=== PATIENT | female | born 2000 | race African-American/Black ===

== ENCOUNTER 2018-06-10 17:41 | Emergency (ER) | payer OTHER ==
[2018-06-10 18:14] VITALS: TEMP 99
[2018-06-10] MEDS ORDERED: ONDANSETRON 4 MG/2 ML VIAL IVP STA (19:10)
[2018-06-10] MEDS ORDERED: KETOROLAC 30 MG/ML 1 ML VIAL IVP STA (19:10)
[2018-06-10] MEDS ORDERED: SODIUM CHLORIDE 0.9% 1,000 ML IV STA (19:10)
[2018-06-10] MEDS ORDERED: HYDROmorphone 0.5 MG/0.5 ML SYRINGE IVP STA (19:10)
--- NOTE | 2018-06-10 19:14 | ED ---
Abdominal Pain HPI - General Source: patient Mode of arrival: wheelchair Limitations: no limitations <Aaliyah Fischer - Last Filed: 06/10/18 22:33> <Josi Poon - Last Filed: 06/11/18 03:55> - General Chief Complaint: Abdominal Pain Stated Complaint: Cramps and migraine Time Seen by Provider: 06/10/18 18:43 - History of Present Illness Initial Comments: 18-year-old female patient presents to the emergency department today for evaluation of lower abdominal pain and headache. Patient states the pain in her abdomen started this morning. She describes as a cramping type pain. Denies any radiation of the pain through to her back. Patient states that the pain has been constant. She denies any as the patient, diarrhea, nausea, vomiting, hematuria, dysuria, urinary frequency, urinary urgency. States shortly after the cramping started that she developed a headache. Patient states the headache is frontal. States that she does have some light and sound sensitivity but denies any blurred or double vision. Denies any fever or chills with this. Patient states she does have a history of similar type headaches. Patient states her period ended yesterday. States it lasted for 3 days which is not unusual for her. States that she does take control pills. She denies any abnormal vaginal discharge or itching. Patient denies any recent rash, shortness breath, chest pain, numbness, tingling, dizziness, weakness, or any other complaints. (Aaliyah Fischer) - Related Data Previous Rx's Medication Instructions Recorded Ibuprofen [Motrin] 600 mg PO Q8HR PRN #30 tab 06/10/18 Allergies Allergy/AdvReac Type Severity Reaction Status Date / Time No Known Allergies Allergy Verified 06/10/18 19:01 Review of Systems ROS Other: All systems not noted in ROS Statement are negative. <Aaliyah Fischer - Last Filed: 06/10/18 22:33> ROS Other: All systems not noted in ROS Statement are negative. <Josi Poon - Last Filed: 06/11/18 03:55> ROS Statement: Those systems with pertinent positive or pertinent negative responses have been documented in the HPI. Past Medical History Past Medical History: No Reported History History of Any Multi-Drug Resistant Organisms: None Reported Past Surgical History: No Surgical Hx Reported Past Psychological History: No Psychological Hx Reported Smoking Status: Never smoker Past Alcohol Use History: None Reported Past Drug Use History: None Reported <Aaliyah Fischer - Last Filed: 06/10/18 22:33> General Exam Limitations: no limitations General appearance: alert, in no apparent distress, other (Physical well- developed, well-nourished adult female patient in no acute distress. Vital signs upon presentation are temperature 99.0F, pulse 107, respirations 16, blood pressure 94/45, pulse ox 100% on room air.) Eye exam: Present: normal appearance, PERRL, EOMI. Absent: scleral icterus, conjunctival injection, periorbital swelling ENT exam: Present: normal exam, normal oropharynx, mucous membranes moist Respiratory exam: Present: normal lung sounds bilaterally. Absent: respiratory distress, wheezes, rales, rhonchi, stridor Cardiovascular Exam: Present: regular rate, normal rhythm, normal heart sounds. Absent: systolic murmur, diastolic murmur, rubs, gallop, clicks GI/Abdominal exam: Present: soft, tenderness (Lower abdominal tenderness worse over the suprapubic region), normal bowel sounds. Absent: distended, guarding, rebound, rigid Neurological exam: Present: alert, oriented X3, CN II-XII intact Psychiatric exam: Present: normal affect, normal mood Skin exam: Present: warm, dry, intact, normal color. Absent: rash <Aaliyah Fischer - Last Filed: 06/10/18 22:33> Course Vital Signs 06/10/18 06/10/18 18:11 22:16 Temperature 99 F Pulse Rate 107 H 76 Respiratory 16 18 Rate Blood Pressure 94/45 104/59 O2 Sat by Pulse 100 99 Oximetry Medical Decision Making - Lab Data Result diagrams: 06/10/18 19:40 06/10/18 19:40 - Radiology Data Radiology results: report reviewed <Aaliyah Fischer - Last Filed: 06/10/18 22:33> - Lab Data Result diagrams: 06/10/18 19:40 06/10/18 19:40 <Josi Poon - Last Filed: 06/11/18 03:55> - Medical Decision Making 18-year-old female patient presents to the emergency department today for evaluation of headache and pelvic cramping. Physical examination did reveal tenderness over the suprapubic region. Labs reviewed and were unremarkable. Ultrasound was obtained and showed no evidence of acute pelvic abnormalities. Upon reevaluation patient does report improvement of symptoms. States she is having some mild cramping in the lower abdomen. She is afebrile, vital signs stable. Patient's period ended yesterday. We'll discharge home at this time to follow-up with her primary care physician. She'll be a prescription for ibuprofen. Return parameters were discussed in detail. She verbalizes understanding and agrees with this plan. (Aaliyah Fischer) I was available for consultation in the emergency department. The history and physical exam were done by the midlevel provider. I was consulted for this patient's care. I reviewed the case with the midlevel provider and based on their presentation of the patient, I agree with the assessment, medical decision making and plan of care as documented. (Josi Poon) - Lab Data Lab Results 06/10/18 06/10/18 06/10/18 Range/Units 19:40 19:40 19:40 WBC 11.8 H (4.0-11.0) k/uL RBC 4.41 (3.80-5.40) m/uL Hgb 12.9 (11.4-16.0) gm/dL Hct 40.3 (34.0-46.0) % MCV 91.5 (80.0-100.0) fL MCH 29.2 (25.0-35.0) pg MCHC 31.9 (31.0-37.0) g/dL RDW 13.8 (11.5-15.5) % Plt Count 231 (150-450) k/uL Neutrophils % 80 % Lymphocytes % 14 % Monocytes % 3 % Eosinophils % 2 % Basophils % 0 % Neutrophils # 9.5 H (1.3-7.7) k/uL Lymphocytes # 1.6 (1.0-4.8) k/uL Monocytes # 0.4 (0-1.0) k/uL Eosinophils # 0.2 (0-0.7) k/uL Basophils # 0.0 (0-0.2) k/uL Sodium 140 (137-145) mmol/L Potassium 3.9 (3.5-5.1) mmol/L Chloride 106 (98-107) mmol/L Carbon Dioxide 23 (22-30) mmol/L Anion Gap 11 mmol/L BUN 9 (7-17) mg/dL Creatinine 0.64 (0.52-1.04) mg/dL Est GFR (CKD-EPI)AfAm >90 (>60 ml/min/1.73 sqM) Est GFR (CKD-EPI)NonAf >90 (>60 ml/min/1.73 sqM) Glucose 85 (74-99) mg/dL Calcium 9.4 (8.4-10.2) mg/dL Total Bilirubin 0.7 (0.2-1.3) mg/dL AST 19 (14-36) U/L ALT 28 (9-52) U/L Alkaline Phosphatase 95 (38-126) U/L Total Protein 7.1 (6.3-8.2) g/dL Albumin 4.3 (3.5-5.0) g/dL Amylase 43 (30-110) U/L Lipase 43 (23-300) U/L Urine Color Light Yellow Urine Appearance Clear (Clear) Urine pH 8.0 (5.0-8.0) Ur Specific [place] 1.014 (1.001-1.035) Urine Protein Negative (Negative) Urine Glucose (UA) Negative (Negative) Urine Ketones Negative (Negative) Urine Blood Moderate H (Negative) Urine Nitrite Negative (Negative) Urine Bilirubin Negative (Negative) Urine Urobilinogen <2.0 (<2.0) mg/dL Ur Leukocyte Esterase Negative (Negative) Urine RBC 1 (0-5) /hpf Urine WBC 2 (0-5) /hpf Ur Squamous Epith Cells 9 H (0-4) /hpf Amorphous Sediment Rare H (None) /hpf Urine Bacteria Rare H (None) /hpf Urine Mucus Rare H (None) /hpf Urine HCG, Qual (Not Detectd) 06/10/18 Range/Units 19:42 WBC (4.0-11.0) k/uL RBC (3.80-5.40) m/uL Hgb (11.4-16.0) gm/dL Hct (34.0-46.0) % MCV (80.0-100.0) fL MCH (25.0-35.0) pg MCHC (31.0-37.0) g/dL RDW (11.5-15.5) % Plt Count (150-450) k/uL Neutrophils % % Lymphocytes % % Monocytes % % Eosinophils % % Basophils % % Neutrophils # (1.3-7.7) k/uL Lymphocytes # (1.0-4.8) k/uL Monocytes # (0-1.0) k/uL Eosinophils # (0-0.7) k/uL Basophils # (0-0.2) k/uL Sodium (137-145) mmol/L Potassium (3.5-5.1) mmol/L Chloride (98-107) mmol/L Carbon Dioxide (22-30) mmol/L Anion Gap mmol/L BUN (7-17) mg/dL Creatinine (0.52-1.04) mg/dL Est GFR (CKD-EPI)AfAm (>60 ml/min/1.73 sqM) Est GFR (CKD-EPI)NonAf (>60 ml/min/1.73 sqM) Glucose (74-99) mg/dL Calcium (8.4-10.2) mg/dL Total Bilirubin (0.2-1.3) mg/dL AST (14-36) U/L ALT (9-52) U/L Alkaline Phosphatase (38-126) U/L Total Protein (6.3-8.2) g/dL Albumin (3.5-5.0) g/dL Amylase (30-110) U/L Lipase (23-300) U/L Urine Color Urine Appearance (Clear) Urine pH (5.0-8.0) Ur Specific [place] (1.001-1.035) Urine Protein (Negative) Urine Glucose (UA) (Negative) Urine Ketones (Negative) Urine Blood (Negative) Urine Nitrite (Negative) Urine Bilirubin (Negative) Urine Urobilinogen (<2.0) mg/dL Ur Leukocyte Esterase (Negative) Urine RBC (0-5) /hpf Urine WBC (0-5) /hpf Ur Squamous Epith Cells (0-4) /hpf Amorphous Sediment (None) /hpf Urine Bacteria (None) /hpf Urine Mucus (None) /hpf Urine HCG, Qual Not Detected (Not Detectd) - Radiology Data Transvaginal ultrasound was obtained. Report was reviewed in its entirety. Impression by Dr. Frazier shows negative transvaginal pelvic sonogram. No e vidence of ovarian torsion. No adnexal mass or free fluid. (Aaliyah Fischer) Disposition Is patient prescribed a controlled substance at d/c from ED?: No Time of Disposition: 21:42 <Aaliyah Fischer - Last Filed: 06/10/18 22:33> <Josi Poon - Last Filed: 06/11/18 03:55> Clinical Impression: Abdominal pain, Headache Disposition: HOME SELF-CARE Condition: Good Instructions (If sedation given, give patient instructions): Acute Headache (ED), Abdominal Pain (ED) Additional Instructions: Take medications as directed. Follow-up with your primary care physician for recheck in 1-2 days. Return to the emergency department immediately for any new, worsening, or concerning symptoms. Prescriptions: Ibuprofen [Motrin] 600 mg PO Q8HR PRN #30 tab PRN Reason: Pain Referrals: [facility] [NON-STAFF] - 1-2 days
[2018-06-10 19:53] LABS: Amorphous Sediment,Urine Rare /hpf; Appearance,Urine Clear (Clear); Bacteria,Urine Rare /hpf; Bilirubin,Urine Negative (Negative); Blood,Urine Moderate (Negative); Color,Urine Light Yellow; Glucose,Urine (UA) Negative (Negative); Ketones,Urine Negative (Negative); Leukocyte Esterase,Urine Negative (Negative); Mucus,Urine Rare /hpf; Nitrite,Urine Negative (Negative); Protein,Urine Negative (Negative); RBC,Urine 1 /hpf (0-5); Specific Gravity,Urine 1.014 (1.001-1.035); Squamous Epithelial Cell,Urine 9 /hpf (0-4); Urobilinogen,Urine <2.0 mg/dL (<2.0); WBC,Urine 2 /hpf (0-5)
[2018-06-10 19:59] LABS: Basophils % (A) 0 %; Eosinophils # (A) 0.2 k/uL (0-0.7); Eosinophils % (A) 2 %; HCT 40.3 % (34.0-46.0); HGB 12.9 gm/dL (11.4-16.0); Lymphocytes # (A) 1.6 k/uL (1.0-4.8); Lymphocytes % (A) 14 %; MCH 29.2 pg (25.0-35.0); MCHC 31.9 g/dL (31.0-37.0); MCV 91.5 fL (80.0-100.0); Mean Platelet Volume 7.6; Monocytes # (A) 0.4 k/uL (0-1.0); Monocytes % (A) 3 %; Neutrophils # (A) 9.5 k/uL (1.3-7.7); Neutrophils % (A) 80 %; Platelet Count 231 k/uL (150-450); RBC 4.41 m/uL (3.80-5.40); RDW 13.8 % (11.5-15.5); WBC 11.8 k/uL (4.0-11.0)
[2018-06-10 20:00] LABS: ALT 28 U/L (9-52); AST 19 U/L (14-36); Albumin 4.3 g/dL (3.5-5.0); Alkaline Phosphatase 95 U/L (38-126); Amylase 43 U/L (30-110); Anion Gap 11 mmol/L; Blood Urea Nitrogen 9 mg/dL (7-17); Calcium 9.4 mg/dL (8.4-10.2); Carbon Dioxide 23 mmol/L (22-30); Chloride 106 mmol/L (98-107); Glucose 85 mg/dL (74-99); Lipase 43 U/L (23-300); Potassium 3.9 mmol/L (3.5-5.1); Sodium 140 mmol/L (137-145); Total Bilirubin 0.7 mg/dL (0.2-1.3); Total Protein 7.1 g/dL (6.3-8.2)
--- NOTE | 2018-06-10 21:18 | US ---
EXAMINATION TYPE: US transvaginal DATE OF EXAM: 06/10/2018 COMPARISON: NONE CLINICAL HISTORY: Pain. Cramping and headache. TECHNIQUE: Transvaginal (TV). Date of LMP: 06/03/2018 EXAM MEASUREMENTS: Uterus: 7.7 x 3.3 x 6.6 cm Endometrial Stripe: 0.3 cm Right Ovary: 4.0 x 2.2 x 1.7 cm 1. Uterus: Anteverted wnl 2. Endometrium: wnl 3. Right Ovary: Echogenic area seen. 4. Left Ovary: Obscured by overlying bowel gas Spectral, color and waveform doppler imaging shows good arterial and venous flow within the right o vary; there is no evidence for ovarian torsion. 5. Bilateral Adnexa: wnl 6. Posterior cul-de-sac: wnl IMPRESSION: Negative transvaginal pelvic sonogram. No evidence of ovarian torsion. No adnexal mass or free fluid.
[2018-06-10] MEDS ORDERED: IBUPROFEN 600 MG STARTER PACK 4 TAB BTL PO STA (22:02)
[2018-06-10 22:17] VITALS: BP 104/59; PULSE 76; RESP 18
== END 2018-06-10 22:05 | disposition home or self-care (01) ==
LOC: EC 17:41
DX: R10.30 Lower abdominal pain, unspecified (principal); R51 Headache
CPT/HCPCS: 36415; 80053; 82150; 83690; 85025; 81001; 81025; 93976; 76830; 99284; 96374; 96375 ×2; 96361; J2405; J1885; J1170

== ENCOUNTER 2018-06-28 11:40 | Emergency (ER) | payer OTHER ==
[2018-06-28] MEDS ORDERED: SODIUM CHLORIDE 0.9% 1,000 ML IV STA (12:23)
[2018-06-28 12:45] LABS: Basophils % (A) 0 %; Eosinophils # (A) 0.2 k/uL (0-0.7); Eosinophils % (A) 2 %; HCT 40.7 % (34.0-46.0); HGB 13.4 gm/dL (11.4-16.0); Lymphocytes # (A) 1.6 k/uL (1.0-4.8); Lymphocytes % (A) 24 %; MCH 29.4 pg (25.0-35.0); MCHC 32.8 g/dL (31.0-37.0); MCV 89.5 fL (80.0-100.0); Mean Platelet Volume 7.4; Monocytes # (A) 0.3 k/uL (0-1.0); Monocytes % (A) 5 %; Neutrophils # (A) 4.3 k/uL (1.3-7.7); Neutrophils % (A) 66 %; Platelet Count 291 k/uL (150-450); RBC 4.55 m/uL (3.80-5.40); RDW 13.7 % (11.5-15.5); WBC 6.5 k/uL (4.0-11.0)
[2018-06-28 12:48] LABS: Appearance,Urine Clear (Clear); Bilirubin,Urine Negative (Negative); Blood,Urine Negative (Negative); Color,Urine Yellow; Glucose,Urine (UA) Negative (Negative); Ketones,Urine Negative (Negative); Leukocyte Esterase,Urine Negative (Negative); Nitrite,Urine Negative (Negative); PH, Urine 5.5 (5.0-8.0); Protein,Urine Negative (Negative); Specific Gravity,Urine 1.015 (1.001-1.035); Urobilinogen,Urine <2.0 mg/dL (<2.0)
[2018-06-28 12:53] LABS: ALT 15 U/L (9-52); AST 23 U/L (14-36); Albumin 4.5 g/dL (3.5-5.0); Alkaline Phosphatase 72 U/L (38-126); Anion Gap 11 mmol/L; Blood Urea Nitrogen 9 mg/dL (7-17); Calcium 9.7 mg/dL (8.4-10.2); Carbon Dioxide 24 mmol/L (22-30); Chloride 105 mmol/L (98-107); Glucose 100 mg/dL (74-99); Lipase 55 U/L (23-300); Sodium 140 mmol/L (137-145); Total Bilirubin 0.5 mg/dL (0.2-1.3); Total Protein 7.4 g/dL (6.3-8.2)
[2018-06-28 13:00] LABS: Potassium 4.5 mmol/L (3.5-5.1)
--- NOTE | 2018-06-28 13:03 | US ---
EXAMINATION TYPE: US abdomen APPY DATE OF EXAM: 06/28/2018 COMPARISON: NONE CLINICAL HISTORY: Pain. RLQ pain for two weeks, patient states it feels like menstrual cramps. APPENDIX AP Diameter (normal < 6mm): 0.3 mm Measured outer wall to outer wall. Is the appendix seen in its entirety from the proximal cecum to distal end: no Is the appendix compressible: yes Does the appendix wall appear hypervascular: No Is an appendicolith present: No Is there inflammatory changes or free fluid present: No Tubular structure seen is believed to be normal appendix. Incidental note is made of complex right ov sugey cyst measuring 4.6 x 3.5 x 4.4 cm with peripheral flow. IMPRESSION: 1. NO DEFINITE EVIDENCE OF ACUTE APPENDICITIS. 2. COMPLEX RIGHT OVARIAN CYST.
--- NOTE | 2018-06-28 13:58 | XR ---
EXAMINATION TYPE: XR KUB , 2 VIEWS DATE OF EXAM ORDERED: 06/28/2018 HISTORY: abdominal pain. COMPARISON: None. FINDINGS: The lung bases are clear. Within the abdomen, the abdominal gas pattern is normal. There is no evidence of obstruction or free air. No unusual calcifications are seen. IMPRESSION: NO ACUTE INTRA-ABDOMINAL ABNORMALITY.
--- NOTE | 2018-06-28 14:01 | ED ---
General Adult HPI - General Chief complaint: Abdominal Pain Stated complaint: Abd pain Time Seen by Provider: 06/28/18 12:01 Source: patient, RN notes reviewed, old records reviewed Mode of arrival: ambulatory Limitations: no limitations - History of Present Illness Initial comments: 18-year-old female patient with no pertinent past medical history presents to ED with a cramping waxing waning right lower quadrant pain for approximately 2 weeks. His had similar pain in the past relating to ovarian cysts. Patient reports that she was seen at urgent care approximately 2 weeks ago in which they did abdominal x-ray and stated her pain is likely secondary to constipation. Patient does report that she has had some constipation and irregular stools. Cameron ferraro was should have a normal bowel movement today. Patient denies any nausea vomiting or diarrhea. Patient states that the pain is a cramping pain which comes and goes, not associated with exertion or rest, associated with food. Denies all other complaints. Patient states that she is not . Systemic: Pt denies fatigue, myalgia, fever/chills, rash. Pt denies weakness, night sweats, weight loss. Neuro: Pt denies headache, visual disturbances, syncope or pre-syncope. HEENT: Pt denies ocular discharge or irritation, otalgia, rhinorrhea, pharyngitis or notable lymphadenopathy. Cardiopulmonary: Pt denies chest pain, SOB, heart palpitations, dyspnea on exertion. Abdominal/GI: Pt denies n/v/d. : Pt denies dysuria, burning w/ urination, frequency/urgency. Denies new onset urinary or bowel incontinence. MSK: Pt denies myalgia, loss of strength or function in extremities. Neuro: Pt denies new onset weakness, paresthesias. - Related Data Home Medications Medication Instructions Recorded Confirmed Docusate [Colace] 100 mg PO DAILY 06/28/18 06/28/18 Polyethylene Glycol 3350 [Miralax] 17 gm PO DAILY 06/28/18 06/28/18 Allergies Allergy/AdvReac Type Severity Reaction Status Date / Time No Known Allergies Allergy Verified 06/28/18 12:04 Review of Systems ROS Statement: Those systems with pertinent positive or pertinent negative responses have been documented in the HPI. ROS Other: All systems not noted in ROS Statement are negative. Past Medical History Past Medical History: No Reported History History of Any Multi-Drug Resistant Organisms: None Reported Past Surgical History: No Surgical Hx Reported Past Psychological History: No Psychological Hx Reported Smoking Status: Never smoker Past Alcohol Use History: None Reported Past Drug Use History: None Reported General Exam - General Exam Comments Initial Comments: Constitutional: NAD, AOX3, Pt has pleasant affect. HEENT: NC/AT, trachea midline, neck supple, no lymphadenopathy. Posterior pharynx non erythematous, without exudates. External ears appear normal, without discharge. Mucous membranes moist. Eyes PERRLA, EOM intact. There is no scleral icterus. No pallor noted. Cardiopulmonary: RRR, no murmurs, rubs or gallops, no JVD noted. Lungs CTAB in anterior and posterior mai. No peripheral edema. Abdominal exam: Abdomen soft and non-distended. Lower quadrant nontender to palpation, no tenderness at McBurney's point. No rebound tenderness, no areas of abdominal tenderness, no guarding no rigidity. Bowel sounds active in LLQ. No hepatosplenomegaly. No ecchymosis Neuro: CN II-XII grossly intact. No nuchal rigidity. MSK: No posterior calf tenderness bilaterally, homans sign negative bilaterally. Posterior tibialis and radial pulse +2 bilaterally. Sensation intact in upper and lower extremities. Full active ROM in upper and lower extremities, 5/5 stregnth. Limitations: no limitations Course Vital Signs 06/28/18 11:57 Temperature 99.2 F Pulse Rate 60 Respiratory 18 Rate Blood Pressure 118/66 O2 Sat by Pulse 99 Oximetry Medical Decision Making - Medical Decision Making 18-year-old female patient with no pertinent past medical history presents to ED with a cramping waxing waning right lower quadrant pain for approximately 2 weeks. His had similar pain in the past relating to ovarian cysts. Patient reports that she was seen at urgent care approximately 2 weeks ago in which they did abdominal x-ray and stated her pain is likely secondary to constipation. Patient does report that she has had some constipation and irregular stools. Patient was should have a normal bowel movement today. Patient denies any nausea vomiting or diarrhea. Patient states that the pain is a cramping pain which comes and goes, not associated with exertion or rest, associated with food. Denies all other complaints. Patient states that she is not . Patient vital signs stable, afebrile. Physical exam displayed nontender abdomen. Laboratory investigations reveal non-impressive CBC, CMP, UA. HCG negative. Right Lower Quadrant Displayed a Tubular Structure Believed to Be a Normal Appendix, incidental finding of complex right ovarian cyst. Transvaginal trauma displayed a complex 4.8 centimeter right ovarian cyst. KUB displayed no acute process. Etiology of patient's waxing and waning right lower quadrant pain likely complex ovarian cyst. Patient will be discharged with outpatient follow-up with [facility] as well as primary care provider. Patient has established [facility] previous that she over they'll to follow up with. Pt also provided [facility] referral from [facility] staff physician if unable to follow up with previously established [facility]. Patient return to ER condition worsen an yway. Case discussed with Dr. Hicks. - Lab Data Result diagrams: 06/28/18 12:34 06/28/18 12:34 Lab Results 06/28/18 06/28/18 06/28/18 Range/Units 12:34 12:34 12:34 WBC 6.5 (4.0-11.0) k/uL RBC 4.55 (3.80-5.40) m/uL Hgb 13.4 (11.4-16.0) gm/dL Hct 40.7 (34.0-46.0) % MCV 89.5 (80.0-100.0) fL MCH 29.4 (25.0-35.0) pg MCHC 32.8 (31.0-37.0) g/dL RDW 13.7 (11.5-15.5) % Plt Count 291 (150-450) k/uL Neutrophils % 66 % Lymphocytes % 24 % Monocytes % 5 % Eosinophils % 2 % Basophils % 0 % Neutrophils # 4.3 (1.3-7.7) k/uL Lymphocytes # 1.6 (1.0-4.8) k/uL Monocytes # 0.3 (0-1.0) k/uL Eosinophils # 0.2 (0-0.7) k/uL Basophils # 0.0 (0-0.2) k/uL Sodium 140 (137-145) mmol/L Potassium 4.5 (3.5-5.1) mmol/L Chloride 105 (98-107) mmol/L Carbon Dioxide 24 (22-30) mmol/L Anion Gap 11 mmol/L BUN 9 (7-17) mg/dL Creatinine 0.55 (0.52-1.04) mg/dL Est GFR (CKD-EPI)AfAm >90 (>60 ml/min/1.73 sqM) Est GFR (CKD-EPI)NonAf >90 (>60 ml/min/1.73 sqM) Glucose 100 H (74-99) mg/dL Plasma Lactic Acid Bal (0.7-2.0) mmol/L Calcium 9.7 (8.4-10.2) mg/dL Total Bilirubin 0.5 (0.2-1.3) mg/dL AST 23 (14-36) U/L ALT 15 (9-52) U/L Alkaline Phosphatase 72 (38-126) U/L Total Protein 7.4 (6.3-8.2) g/dL Albumin 4.5 (3.5-5.0) g/dL Lipase 55 (23-300) U/L Urine Color Urine Appearance (Clear) Urine pH (5.0-8.0) Ur Specific [place] (1.001-1.035) Urine Protein (Negative) Urine Glucose (UA) (Negative) Urine Ketones (Negative) Urine Blood (Negative) Urine Nitrite (Negative) Urine Bilirubin (Negative) Urine Urobilinogen (<2.0) mg/dL Ur Leukocyte Esterase (Negative) Urine HCG, Qual Not Detected (Not Detectd) 06/28/18 06/28/18 Range/Units 12:34 12:34 WBC (4.0-11.0) k/uL RBC (3.80-5.40) m/uL Hgb (11.4-16.0) gm/dL Hct (34.0-46.0) % MCV (80.0-100.0) fL MCH (25.0-35.0) pg MCHC (31.0-37.0) g/dL RDW (11.5-15.5) % Plt Count (150-450) k/uL Neutrophils % % Lymphocytes % % Monocytes % % Eosinophils % % Basophils % % Neutrophils # (1.3-7.7) k/uL Lymphocytes # (1.0-4.8) k/uL Monocytes # (0-1.0) k/uL Eosinophils # (0-0.7) k/uL Basophils # (0-0.2) k/uL Sodium (137-145) mmol/L Potassium (3.5-5.1) mmol/L Chloride (98-107) mmol/L Carbon Dioxide (22-30) mmol/L Anion Gap mmol/L BUN (7-17) mg/dL Creatinine (0.52-1.04) mg/dL Est GFR (CKD-EPI)AfAm (>60 ml/min/1.73 sqM) Est GFR (CKD-EPI)NonAf (>60 ml/min/1.73 sqM) Glucose (74-99) mg/dL Plasma Lactic Acid Bal 1.3 (0.7-2.0) mmol/L Calcium (8.4-10.2) mg/dL Total Bilirubin (0.2-1.3) mg/dL AST (14-36) U/L ALT (9-52) U/L Alkaline Phosphatase (38-126) U/L Total Protein (6.3-8.2) g/dL Albumin (3.5-5.0) g/dL Lipase (23-300) U/L Urine Color Yellow Urine Appearance Clear (Clear) Urine pH 5.5 (5.0-8.0) Ur Specific [place] 1.015 (1.001-1.035) Urine Protein Negative (Negative) Urine Glucose (UA) Negative (Negative) Urine Ketones Negative (Negative) Urine Blood Negative (Negative) Urine Nitrite Negative (Negative) Urine Bilirubin Negative (Negative) Urine Urobilinogen <2.0 (<2.0) mg/dL Ur Leukocyte Esterase Negative (Negative) Urine HCG, Qual (Not Detectd) Disposition Clinical Impression: Ovarian cyst Disposition: HOME SELF-CARE Condition: Stable Instructions (If sedation given, give patient instructions): Ovarian Cyst (ED) Additional Instructions: Patient to adhere to previously discussed treatment plan and will take medication(s) as directed. Patient to follow up with PCP in 1-2 days. Patient to return to ED if symptoms do not improve. Please follow-up with primary care provider and previously established [facility] in 1-2 days for continued evaluation of right ovarian cyst. Please return to ED if condition worsens in any way. Additional [facility] referral provided if unable to establish care with previously established [facility]. Is patient prescribed a controlled substance at d/c from ED?: No Referrals: Nonstaff,Physician [Primary Care Provider] - 1-2 days Karol Chappell MD [STAFF PHYSICIAN] - 1-2 days
--- NOTE | 2018-06-28 14:09 | US ---
EXAMINATION TYPE: US transvaginal DATE OF EXAM: 06/28/2018 COMPARISON: Previous study dated 06/10/2018 CLINICAL HISTORY: rlq pain. TECHNIQUE: Transvaginal (TV). Date of LMP: 06/07/2018 EXAM MEASUREMENTS:. Uterus: 8.5 x 4.3 x 6.4 cm Endometrial Stripe: 1.9 cm Right Ovary: 5.2 x 4.9 x 4.9 cm Left Ovary: 4.2 x 2.1 x 4.1 cm 1. Uterus: Anteverted wnl 2. Endometrium: small amount of fluid seen in canal fundally. 3. Right Ovary: complex cyst measures 4.8 x 3.7 x 4.2 cm 4. Left Ovary: wnl Spectral, color and waveform doppler imaging shows good arterial and venous flow within the ovaries ; there is no evidence for ovarian torsion. 5. Bilateral Adnexa: wnl 6. Posterior cul-de-sac: no free fluid IMPRESSION: COMPLEX, 4.8 CM RIGHT OVARIAN CYST. SHORT-TERM FOLLOW-UP MAY BE WORTHWHILE. .
[2018-06-28 15:14] VITALS: BP 122/69; PULSE 80; RESP 18; TEMP 97.6
== END 2018-06-28 15:00 | disposition home or self-care (01) ==
LOC: EC 11:40
DX: N83.201 Unspecified ovarian cyst, right side (principal); K59.00 Constipation, unspecified; Z79.899 Other long term (current) drug therapy
CPT/HCPCS: 36415; 74018; 76705; 76830; 80053; 81003; 81025; 83605; 83690; 85025; 93975; 96360; 99285

== ENCOUNTER 2018-07-01 08:35 | Emergency (ER) | payer OTHER ==
[2018-07-01 08:40] VITALS: BP 119/67; PULSE 96; RESP 18; TEMP 98.5
--- NOTE | 2018-07-01 09:25 | ED ---
Female Urogenital HPI - General Chief complaint: Vaginal Bleeding Stated complaint: Vaginal Bleeding Time Seen by Provider: 07/01/18 08:42 Source: patient, RN notes reviewed, old records reviewed Mode of arrival: ambulatory Limitations: no limitations - History of Present Illness Initial comments: Patient is a 18-year-old female presents emergency Department today with complaints of vaginal bleeding starting today. She states she is here 4 days ago diagnosed with ovarian cysts. That time she had negative tests and laboratory was reviewed and normal. She's been taking ibuprofen. She complains of some right-sided pain. - Related Data Home Medications Medication Instructions Recorded Confirmed Fluticasone Nasal [place] [Flonase 1 spray EA NOSTRIL DAILY 07/01/18 07/01/18 Nasal [place]] Ibuprofen [Motrin] 800 mg PO Q8H PRN 07/01/18 07/01/18 Loratadine [Claritin] 10 mg PO DAILY PRN 07/01/18 07/01/18 Allergies Allergy/AdvReac Type Severity Reaction Status Date / Time No Known Allergies Allergy Verified 07/01/18 08:57 Review of Systems ROS Statement: Those systems with pertinent positive or pertinent negative responses have been documented in the HPI. ROS Other: All systems not noted in ROS Statement are negative. Past Medical History Past Medical History: No Reported History History of Any Multi-Drug Resistant Organisms: None Reported Past Surgical History: No Surgical Hx Reported Past Psychological History: No Psychological Hx Reported Smoking Status: Never smoker Past Alcohol Use History: None Reported Past Drug Use History: None Reported General Exam - General Exam Comments Initial Comments: 18-year-old female. Alert and oriented. No distress. Limitations: no limitations General appearance: alert, in no apparent distress Head exam: Present: atraumatic Eye exam: Present: normal appearance, PERRL, EOMI. Absent: scleral icterus, conjunctival injection, periorbital swelling ENT exam: Present: normal exam, mucous membranes moist Neck exam: Present: normal inspection. Absent: tenderness, meningismus, lymphadenopathy Respiratory exam: Present: normal lung sounds bilaterally. Absent: respiratory distress, wheezes, rales, rhonchi, stridor Cardiovascular Exam: Present: regular rate, normal rhythm, normal heart sounds. Absent: systolic murmur, diastolic murmur, rubs, gallop, clicks GI/Abdominal exam: Present: soft, normal bowel sounds. Absent: distended, tenderness, guarding, rebound, rigid Extremities exam: Present: normal inspection, full ROM, normal capillary refill. Absent: tenderness, pedal edema, joint swelling, calf tenderness Back exam: Present: normal inspection Neurological exam: Present: alert, oriented X3, CN II-XII intact Psychiatric exam: Present: normal affect, normal mood Skin exam: Present: warm, dry, intact, normal color. Absent: rash Course Vital Signs 07/01/18 08:37 Temperature 98.5 F Pulse Rate 96 Respiratory 18 Rate Blood Pressure 119/67 O2 Sat by Pulse 99 Oximetry Medical Decision Making - Medical Decision Making Patient is a 18-year-old female who presents today with vaginal bleeding started today. She was seen in the emergency department 3 days ago and diagnosed with a right-sided ovarian cyst. At this time Patient had normal laboratory days ago and a negative hCG. She denies any dysuria or vaginal discharge. At this time Patient is a far less likely discharged home alone a milligrams by mouth she states her rectal cycles. On the . I discussed the common for menstrual cycle to come early from time to time. Patient has been advised she is follow- up with [facility]. She states she sees one in [place]. Discussed return parameters. All questions answered. Disposition Clinical Impression: Vaginal bleeding Disposition: HOME SELF-CARE Condition: Good Instructions (If sedation given, give patient instructions): Menstruation (ED) Additional Instructions: Follow-up with primary care doctor and [facility]. Return to emergency department if any alarming signs or symptoms occur. Is patient prescribed a controlled substance at d/c from ED?: No Referrals: Nonstaff,Physician [Primary Care Provider] - 1-2 days Time of Disposition: 09:25
== END 2018-07-01 09:33 | disposition home or self-care (01) ==
LOC: EC 08:35
DX: N93.9 Abnormal uterine and vaginal bleeding, unspecified (principal); R10.2 Pelvic and perineal pain; Z79.1 Long term (current) use of non-steroidal anti-inflammatories (NSAID); Z79.51 Long term (current) use of inhaled steroids; Z87.42 Personal history of other diseases of the female genital tract
CPT/HCPCS: 99284